=== PATIENT | male | born 1945 | race Caucasian/White ===

== ENCOUNTER 2016-10-14 07:54 | Inpatient (IN) | payer SELFPAY ==
[~2016-10-14] VITALS: Ht 182.9 cm; Wt 90.7 kg
[2016-10-14] MEDS ORDERED: ONDANSETRON HCL 4MG/2ML VIAL IV STA (09:08)
[2016-10-14] MEDS ORDERED: SODIUM CHLORIDE 0.9% 1,000 ML IV ONE (09:08)
[2016-10-14] MEDS ORDERED: MORPHINE SULFATE 4 MG/ML CPJ (NOT FOR IM USE) IV STA (09:08)
[2016-10-14] MEDS ORDERED: MORPHINE SULFATE 4 MG/ML CPJ (NOT FOR IM USE) IV ONE (10:15)
[2016-10-14 10:16] LABS: HEMOGLOBIN. 15.2 g/dL (14.0-18.0); MEAN CORPUSCULAR HEMOGLOBIN 29.4 pg (28.0-32.0); MEAN CORPUSCULAR VOLUME 85.1 fL (80.0-94.0); MEAN PLATELET VOLUME 8.9 fl (7.4-10.4); PLATELET 225 x1000/uL (130-400); RED BLOOD CELL COUNT 5.17 mill/uL (4.7-6.1); RED CELL DISTRIBUTION WIDTH 15.1 % (11.6-14.6)
[2016-10-14 10:29] LABS: CARBON DIOXIDE 25 mEq/L (21-32); CHLORIDE 103 mEq/L (98-107)
[2016-10-14 10:30] LABS: INR 1.1; PARTIAL THROMBOPLASTIN TIME 25.9 sec (24.0-34.0)
[2016-10-14 10:44] LABS: PLATELET ESTIMATE NORMAL
[2016-10-14] MEDS ORDERED: DEXT 5%/0.45% NACL KCL 20MEQ/L 1,000 ML IV SCH (10:54)
[2016-10-14] MEDS ORDERED: ONDANSETRON HCL 4MG/2ML VIAL IV PRN ×3 (11:00→13:45)
[2016-10-14] MEDS ORDERED: HYDROCODONE/ACETAMINOPHEN 5/325MG TABLET PO PRN ×2 (11:00)
[2016-10-14] MEDS ORDERED: BUPIVACAINE HCL 0.5% (5MG/ML) 50ML ONE (12:01)
[2016-10-14] MEDS ORDERED: MIDAZOLAM HCL 2 MG/2 ML VIAL ONE (12:14)
[2016-10-14] MEDS ORDERED: FENTANYL CITRATE/PF 50MCG/ML 2ML VIAL ONE ×2 (12:15→12:47)
[2016-10-14] MEDS ORDERED: PROPOFOL 200MG/20ML VIAL IV ONE (12:16)
[2016-10-14] MEDS ORDERED: ROCURONIUM BROMIDE 10MG/ML VIAL 5ML IV ONE (12:16)
[2016-10-14] MEDS ORDERED: LIDOCAINE HCL 1% 20ML VIAL (Pyxis) INJ ONE (12:16)
[2016-10-14] MEDS ORDERED: CEFAZOLIN SODIUM 1000MG/VIAL ONE (12:26)
[2016-10-14] MEDS ORDERED: DEXAMETHASONE 4MG/ML 1ML VIAL ONE (12:30)
[2016-10-14] MEDS ORDERED: EPHEDRINE SULFATE 50MG/ML VIAL ONE (12:38)
[2016-10-14] MEDS ORDERED: SODIUM CHLORIDE 0.9% 1,000 ML IV SCH (12:44)
[2016-10-14] MEDS ORDERED: HYDROMORPHONE HCL/PF 2MG/ML CPJ IV PRN (12:45)
[2016-10-14] MEDS ORDERED: MORPHINE SULFATE 2 MG/ML CPJ (NOT FOR IM USE) IV PRN (13:45)
[2016-10-14] MEDS ORDERED: MORPHINE SULFATE 5 MG/ML VIAL IV PRN (13:45)
[2016-10-14 16:00] VITALS: BP 145/90
[2016-10-14] MEDS: MORPHINE SULFATE 4 MG/ML CPJ (NOT FOR IM USE) IV PRN ×2 (16:00→18:36)
[2016-10-14 16:03] VITALS: BP 145/90
[2016-10-14] MEDS: DEXT 5%/0.45% NACL KCL 20MEQ/L 1,000 ML IV SCH (17:37)
[2016-10-14] MEDS: CEFAZOLIN 1000MG PREMIX 50 ML IV SCH (18:36)
[2016-10-14 19:32] LABS: CLARITY URINE CLEAR (CLEAR); COLOR URINE YELLOW (YELLOW); GLUCOSE URINE NEGATIVE (NEGATIVE); KETONES URINE NEGATIVE (NEGATIVE); LEUKOCYTE ESTERASE URINE NEGATIVE (NEGATIVE); NITRITE URINE NEGATIVE (NEGATIVE); OCCULT BLOOD URINE 2+ (NEGATIVE); PROTEIN URINE NEGATIVE (NEGATIVE); SPECIFIC GRAVITY URINE 1.021 (1.005-1.030)
[2016-10-14 20:00] VITALS: BP 121/69
[2016-10-14] MEDS: FAMOTIDINE 20MG/2ML VIAL IV SCH (20:48)
[2016-10-14] MEDS: METRONIDAZOLE 500 MG PREMIX 100 ML IV SCH (20:48)
[2016-10-14] MEDS: SODIUM CHLORIDE 0.9% INJ 3ML FLUSH IVF SCH (21:16)
[2016-10-15] VITALS: BP 108/65
[2016-10-15] MEDS: CEFAZOLIN 1000MG PREMIX 50 ML IV SCH ×2 (01:25→11:19)
[2016-10-15] MEDS: MORPHINE SULFATE 4 MG/ML CPJ (NOT FOR IM USE) IV PRN ×2 (01:49→07:47)
[2016-10-15 04:00] VITALS: BP 112/66
[2016-10-15] MEDS: METRONIDAZOLE 500 MG PREMIX 100 ML IV SCH ×2 (05:36→11:21)
[2016-10-15] MEDS: SODIUM CHLORIDE 0.9% INJ 3ML FLUSH IVF SCH ×3 (05:36→19:47)
[2016-10-15] MEDS: DEXT 5%/0.45% NACL KCL 20MEQ/L 1,000 ML IV SCH ×2 (07:45→13:00)
[2016-10-15 07:55] VITALS: BP 116/66
[2016-10-15] MEDS: FAMOTIDINE 20MG/2ML VIAL IV SCH ×2 (11:19→20:27)
[2016-10-15 12:00] VITALS: BP 123/73
[2016-10-15] MEDS: MORPHINE SULFATE 2 MG/ML CPJ (NOT FOR IM USE) IV PRN (14:53)
[2016-10-15 17:26] VITALS: BP 115/72
[2016-10-15 19:52] VITALS: BP 110/70
[2016-10-16 00:05] VITALS: BP 107/60
[2016-10-16 04:00] VITALS: BP 102/69
[2016-10-16] MEDS: DEXT 5%/0.45% NACL KCL 20MEQ/L 1,000 ML IV SCH ×3 (05:52→16:48)
[2016-10-16] MEDS: SODIUM CHLORIDE 0.9% INJ 3ML FLUSH IVF SCH ×2 (05:52→14:00)
[2016-10-16 08:00] VITALS: BP 122/70
[2016-10-16] MEDS: FAMOTIDINE 20MG/2ML VIAL IV SCH ×2 (09:45→22:03)
[2016-10-16] MEDS ORDERED: ENOXAPARIN 40MG/0.4ML SYR SUBCUT SCH (10:30)
[2016-10-16 12:00] VITALS: BP 121/69
[2016-10-16 16:00] VITALS: BP 111/64
[2016-10-16] MEDS: MORPHINE SULFATE 2 MG/ML CPJ (NOT FOR IM USE) IV PRN (16:55)
[2016-10-16 20:00] VITALS: BP 103/61
[2016-10-16] MEDS: ENOXAPARIN 40MG/0.4ML SYR SUBCUT SCH (22:40)
[2016-10-17] VITALS: BP 114/63
[2016-10-17 04:00] VITALS: BP 113/67
[2016-10-17 08:00] VITALS: BP 103/67
[2016-10-17 08:58] LABS: BASOPHILS % 0.5 % (0.0-2.0); EOSINOPHILS % 0.9 % (0.0-5.0); HEMATOCRIT. 37.4 % (42.0-52.0); HEMOGLOBIN. 12.9 g/dL (14.0-18.0); MEAN CORPUSCULAR HEMOGLOBIN 29.4 pg (28.0-32.0); MEAN CORPUSCULAR VOLUME 84.7 fL (80.0-94.0); MEAN PLATELET VOLUME 8.9 fl (7.4-10.4); MONOCYTES % 8.1 % (2.0-8.0); NEUTROPHILS % 75.5 % (40.0-76.0); PLATELET 233 x1000/uL (130-400); RED BLOOD CELL COUNT 4.41 mill/uL (4.7-6.1); RED CELL DISTRIBUTION WIDTH 14.9 % (11.6-14.6)
[2016-10-17] MEDS: FAMOTIDINE 20MG/2ML VIAL IV SCH ×2 (09:28→21:38)
[2016-10-17 09:31] LABS: CARBON DIOXIDE 29 mEq/L (21-32); CHLORIDE 102 mEq/L (98-107)
[2016-10-17] MEDS: MORPHINE SULFATE 2 MG/ML CPJ (NOT FOR IM USE) IV PRN (11:11)
[2016-10-17 12:00] VITALS: BP 115/68
[2016-10-17 16:00] VITALS: BP 120/70
[2016-10-17 20:00] VITALS: BP 109/61
[2016-10-17] MEDS: ENOXAPARIN 40MG/0.4ML SYR SUBCUT SCH (21:30)
[2016-10-18] VITALS: BP 113/57
[2016-10-18 04:00] VITALS: BP 112/67
[2016-10-18 08:00] VITALS: BP 113/72
[2016-10-18] MEDS: FAMOTIDINE 20MG/2ML VIAL IV SCH (09:41)
[2016-10-18 12:00] VITALS: BP 121/78
[2016-10-18 14:07] VITALS: BP 121/78
== END 2016-10-18 14:40 | disposition home or self-care (01) | DRG 221 ==
LOC: ER 07:56 → 6EST 15:44 → INTOOBSV 15:44 → OBSVTOIN 15:44
PROVIDERS: ADMIT Hospitalist; ATTEND Hospitalist
PROC: 0WQF0ZZ Repair Abdominal Wall, Open Approach (ICD-10-PCS; 2016-10-14)
PROC: 0DB80ZZ Excision of Small Intestine, Open Approach (ICD-10-PCS; principal; 2016-10-14 12:00)
DX: K43.0 Incisional hernia with obstruction, without gangrene (principal); K55.029 Acute infarction of small intestine, extent unspecified; K42.9 Umbilical hernia without obstruction or gangrene
CPT/HCPCS: 36415; 74176; 80048; 80053; 81001; 83690; 85025; 85610; 85730; 88302; 93005; 96374; 96375; 96376; 99285; J0171; J0690; J1100; J1650; J2250; J2270; J2405; J2704; J3010; J3490; J7030

== ENCOUNTER 2016-10-29 08:49 | Emergency (ER) | payer SELFPAY ==
[~2016-10-29] VITALS: Ht 182.9 cm; Wt 91.0 kg
[2016-10-29 08:50] VITALS: BP 143/71
== END 2016-10-29 10:44 | disposition home or self-care (01) ==
LOC: ER 09:51
DX: Z48.02 Encounter for removal of sutures (principal); R03.0 Elevated blood-pressure reading, without diagnosis of hypertension; Z98.890 Other specified postprocedural states; Z87.891 Personal history of nicotine dependence
CPT/HCPCS: 99281; Z7610